=== PATIENT | male | born 1995 | race Two or more races ===

== ENCOUNTER 2019-06-07 23:01 | Emergency (ER) | payer BC, OTHER ==
[~2019-06-07] VITALS: Ht 188 cm; Wt 75.0 kg
[2019-06-07 23:37] LABS: BASO % 0 % (0-3); EOS % 0 % (0-3); HEMATOCRIT 47.4 % (39.0-53.0); HEMOGLOBIN 16.4 g/dL (13.0-17.5); LYMPH # 0.6 x10^3/uL (1.0-4.8); LYMPH % 5 % (24-48); MEAN CORPUSCULAR HEMOGLOBIN 29 pg (25-35); MEAN CORPUSCULAR HGB CONC 35 g/dL (31-37); MEAN CORPUSCULAR VOLUME 85 fL (79-100); MONO # 0.4 x10^3/uL (0.0-1.1); MONO % 4 % (0-9); NEUT # 10.5 x10^3/uL (1.8-7.7); NEUT % 91 % (31-73); PLATELET COUNT 213 x10^3/uL (140-400); RED BLOOD COUNT 5.57 x10^6/uL (4.30-5.70); RED CELL DISTRIBUTION WIDTH 13.6 % (11.5-14.5); WHITE BLOOD COUNT 11.5 x10^3/uL (4.0-11.0)
[2019-06-07] MEDS ORDERED: ONDANSETRON PF 4 MG/2 ML VIAL. IV ONE (23:45)
[2019-06-07] MEDS ORDERED: FAMOTIDINE 20 MG/2 ML VIAL IVP ONE (23:45)
[2019-06-07] MEDS ORDERED: IV NORMAL SALINE 1000ML BAG 1,000 ML IV ONE (23:45)
[2019-06-07 23:46] LABS: CALCIUM 9.6 mg/dL (8.5-10.1); CREATININE 1.2 mg/dL (0.7-1.3); GFR 75.7
--- NOTE | 2019-06-07 23:48 | PHYS DOC ---
Past Medical History Past Medical History: No Pertinent History Past Surgical History: Appendectomy Smoking Status: Never Smoker Alcohol Use: None Drug Use: None Adult General Chief Complaint Chief Complaint: HEMATEMESIS/VOMITING BLOOD [facility] HPI Patient is a 23 year old male, accompanied by his significant other, who presents to the emergency department with complaints of nausea, vomiting, and di arrhea that began today. Patient states he has had 4 episodes of vomiting and at least 5 episodes of watery diarrhea today. He currently complains of epigastric burning sensation. He denies any lower abdominal pain, dysuria, hematuria, back pain, fever, cough, shortness of breath, chest pain, pal pitations, headache, sore throat, or ear pain. Patient states he tried taking Pepto-Bismol and drinking orange Gatorade today. He reports that the last 3 times he vomited the vomit appeared orange. He denies any black emesis or bright red emesis. Patient denies any blood in his stool. He currently denies any pain. The patient denies any recent known ill contacts or travel. Review of Systems Review of Systems Complete ROS is negative unless otherwise noted in HPI. Current Medications Current Medications Current Medications Medications (Trade) Dose Ordered Sig/Coreen Start Time Stop Time Status Last Admin Dose Admin Famotidine (Pepcid Vial) 20 mg 1X ONCE 06/07/19 23:45 06/07/19 23:46 DC 06/07/19 23:46 20 MG Ondansetron HCl (Zofran) 4 mg 1X ONCE 06/07/19 23:45 06/07/19 23:46 DC 06/07/19 23:46 4 MG Sodium Chloride 1,000 ml @ 1,000 mls/hr 1X ONCE 06/07/19 23:45 06/08/19 00:44 DC 06/07/19 23:46 1,000 MLS/HR Tetracaine/ Epinephrine/ Lidocaine (Let (Bhak-[id number]) Gel) 3 ml 1X ONCE 06/08/19 00:30 06/08/19 00:31 DC Allergies Allergies Allergies Coded Allergies Type Severity Reaction Last Updated Verified No Known Drug Allergies 03/06/15 No Physical Exam Physical Exam See Above Constitutional: Well developed, well nourished, no acute distress, non-toxic appearance. [] HENT: Normocephalic, atraumatic, bilateral external ears normal, dry mucous membranes, no oral exudates, nose normal. [] Eyes: PERRLA, EOMI, conjunctiva normal, no discharge. [] Neck: Normal range of motion, no stridor. [] Cardiovascular:Heart rate regular rhythm, no murmur [] Lungs & Thorax: Bilateral breath sounds clear to auscultation [] Abdomen: Bowel sounds normal, soft, epigastric tenderness to palpation, no rebou nd tenderness, no guarding, no masses, no pulsatile masses. [] Skin: Warm, dry, no erythema, no rash. [] Extremities: No cyanosis, ROM intact, no edema. [] Neurologic: Alert and oriented X 3, no focal deficits noted. [] Psychologic: Affect normal, judgement normal, mood normal. [] Current Patient Data Vital Signs Vital Signs Date Time Temp Pulse Resp B/P (MAP) Pulse Ox O2 Delivery O2 Flow Rate FiO2 06/07/19 23:05 98.4 87 16 171/100 (123) 96 Room Air 98.4 Lab Values Laboratory Tests Test 06/07/19 23:15 White Blood Count 11.5 x10^3/uL (4.0-11.0) H Red Blood Count 5.57 x10^6/uL (4.30-5.70) Hemoglobin 16.4 g/dL (13.0-17.5) Hematocrit 47.4 % (39.0-53.0) Mean Corpuscular Volume 85 fL (79-100) Mean Corpuscular Hemoglobin 29 pg (25-35) Mean Corpuscular Hemoglobin Concent 35 g/dL (31-37) Red Cell Distribution Width 13.6 % (11.5-14.5) Platelet Count 213 x10^3/uL (140-400) Neutrophils (%) (Auto) 91 % (31-73) H Lymphocytes (%) (Auto) 5 % (24-48) L Monocytes (%) (Auto) 4 % (0-9) Eosinophils (%) (Auto) 0 % (0-3) Basophils (%) (Auto) 0 % (0-3) Neutrophils # (Auto) 10.5 x10^3/uL (1.8-7.7) H Lymphocytes # (Auto) 0.6 x10^3/uL (1.0-4.8) L Monocytes # (Auto) 0.4 x10^3/uL (0.0-1.1) Eosinophils # (Auto) 0.0 x10^3/uL (0.0-0.7) Basophils # (Auto) 0.0 x10^3/uL (0.0-0.2) Segmented Neutrophils % 83 % (35-66) H Band Neutrophils % 6 % (0-9) Lymphocytes % 9 % (24-48) L Monocytes % 2 % (0-10) Platelet Estimate Adequate (ADEQUATE) Sodium Level 141 mmol/L (136-145) Potassium Level 4.0 mmol/L (3.5-5.1) Chloride Level 102 mmol/L (98-107) Carbon Dioxide Level 27 mmol/L (21-32) Anion Gap 12 (6-14) Blood Urea Nitrogen 14 mg/dL (8-26) Creatinine 1.2 mg/dL (0.7-1.3) Estimated GFR (Cockcroft-Gault) 75.7 Glucose Level 108 mg/dL (70-99) H Calcium Level 9.6 mg/dL (8.5-10.1) Lipase 128 U/L (73-393) Laboratory Tests 06/07/19 23:15 Laboratory Tests 06/07/19 23:15 EKG EKG [] Radiology/Procedures Radiology/Procedures [] Course & Med Decision Making Course & Med Decision Making Pertinent Labs and Imaging studies reviewed. (See chart for details) [] Dragon Disclaimer Dragon Disclaimer This electronic medical record was generated, in whole or in part, using a voice recognition dictation system. Departure Departure Impression: Primary Impression: Nausea & vomiting Additional Impression: Diarrhea Disposition: 01 HOME, SELF-CARE Condition: STABLE Referrals: NO PCP (PCP) Patient Instructions: Diarrhea, [id number], Diet for Diarrhea, Adult, Nausea and Vomiting, [id number] Additional Instructions: Fill prescriptions and use them as directed. Recommend clear fluids for the next 24 hours. Then you may advance to bland foods such as bananas, rice, applesauce, and dry toast. Follow-up with your primary care doctor in the next 1-2 days. Return to the emergency room if your symptoms worsen. Scripts Ondansetron Hcl (ONDANSETRON HCL) 4 Mg Tablet 1 TAB PO PRN Q6HRS PRN for NAUSEA/VOMITING for 3 Days, #10 TAB 0 Refills Prov: АННА REYNOLDS APRN 06/08/19 Problem Qualifiers Primary Impression: Nausea & vomiting Vomiting type: unspecified Vomiting Intractability: non-intractable Qualified Codes: R11.2 - Nausea with vomiting, unspecified Additional Impression: Diarrhea Diarrhea type: unspecified type Qualified Codes: R19.7 - Diarrhea, unspecified АННА REYNOLDS INFORMATION TECH[employer]OLOGY CONSULTANT Jun 07, 2019 23:48
[2019-06-07 23:51] LABS: % BANDS 6 % (0-9); % LYMPHS 9 % (24-48); % MONOS 2 % (0-10); % SEGS 83 % (35-66); PLT ESTIMATE ADEQUATE (ADEQUATE)
[2019-06-08] MEDS ORDERED: LIDOCAINE/EPI/TETRACAINE TOPICAL GEL 3 ML. TP ONE (00:30)
[2019-06-08] MEDS ORDERED: ONDA-84 PO (01:23)
[2019-06-08 02:16] VITALS: BP 112/57
== END 2019-06-08 02:18 | disposition home or self-care (01) ==
LOC: ER 23:01
DX: R11.2 Nausea with vomiting, unspecified (principal); R19.7 Diarrhea, unspecified; R10.13 Epigastric pain; Z90.89 Acquired absence of other organs
CPT/HCPCS: 36415; 80048; 83690; 85007; 85025; 96361; 96374; 96375; 99284; J2405; J3490; J7030